=== PATIENT | male | born 1960 | race Caucasian/White ===

== ENCOUNTER 2018-04-12 16:47 | Emergency (ER) | payer MEDICARE, OTHER ==
--- NOTE | 2018-04-12 18:46 | UC ---
Complaint Male HPI - HPI Summary HPI Summary: Per expert witness "B/L flank pain today, with chills; urinary frequency last night; burning with urination started [id number]; slight nausea" -here w/ his . -Goes to at [facility] in [place]. -had US done 2-3 mo ago of kidneys. no known stones. has enlarged prostate and they considered bx. but reoprts nml PSA. -has been told he can take ibuprofen -has had pyelonephritis in past and used cipro. they waited a lot longer to be treated then though -sx started suddenly today. he did take a left over cipro at 1600 today prior to coming in. he and his both report that he has improved since then. - History of Current Complaint Chief Complaint: UCGU Stated Complaint: URINARY,CHILLS,ACHEY Time Seen by Provider: 04/12/18 18:37 Pain Intensity: 6 - Allergies/Home Medications Allergies/Adverse Reactions: Allergies Allergy/AdvReac Type Severity Reaction Status Date / Time Environmental Allergy Eyes Uncoded 04/12/18 17:13 Itchy/Swollen/Red/Watery Home Medications: Home Medications Aspirin [Aspir-Low] 81 mg PO QAM 04/12/18 [History Confirmed 04/12/18] Cetirizine* [ZyrTEC 10 MG TAB*] 10 mg PO DAILY 04/12/18 [History Confirmed 04/12] Ciprofloxacin TAB* [Cipro 250 MG Tab*] 1 dose PO ONCE PRN 04/12/18 [History Confirmed 04/12/18] Metoprolol Tartrate 50 mg PO BID 04/12/18 [History Confirmed 04/12/18] amLODIPine TAB* [Norvasc 5 mg TAB*] 5 mg PO DAILY 04/12/18 [History Confirmed ] raNITIdine HCl [Ranitidine HCl] 150 mg PO BID 04/12/18 [History Confirmed ] PMH/Surg Hx/FS Hx/Imm Hx Previously Healthy: Yes Endocrine History: Dyslipidemia Cardiovascular History: Hypertension - Surgical History Surgical History: Yes Surgery Procedure, Year, and Place: Surgery for colon ca, brain ca, and cardiac stents x 3; 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 Negative: Hematuria Motor: Positive: Negative Neurovascular: Positive: Negative Musculoskeletal: Positive: Arthralgia, Myalgia Neurological: Positive: Negative Psychological: Positive: Negative Is Patient Immunocompromised?: No Physical Exam Triage Information Reviewed: Yes Appearance: Ill-Appearing - mildly so. sleeping sitting up in chair when I walked into exam room. is very good historian. Vital Signs: Initial Vital Signs Temp 100.6 F 04/12/18 17:23 Pulse 84 04/12/18 17:23 Resp 20 04/12/18 17:23 BP 137/75 04/12/18 17:23 Pulse Ox 98 04/12/18 17:23 Vital Signs Reviewed: Yes ENT: Positive: Normal ENT inspection, Pharynx normal Neck exam: Normal Neck: Positive: Supple, Nontender, No Lymphadenopathy Respiratory Exam: Normal Respiratory: Positive: Lungs clear, Normal breath sounds, No respiratory distress, No accessory muscle use Cardiovascular Exam: Normal Abdominal Exam: Normal Abdomen Description: Positive: Nontender, Soft, CVA Tenderness (R), CVA Tenderness (L) Bowel Sounds: Positive: Present Musculoskeletal Exam: Normal Neurological Exam: Normal Psychological Exam: Normal Skin Exam: Normal Complaint Male Course/Dx - Course Course Of Treatment: suspect pyelonephritis, possibly B/L Rt > Lt. possible prostatitis. cannot r/o kidney stone. -CBC to track infection. -declines CT. -will go to [facility] at [place] tomorrow if sx not improved. -follows w/ at [facility]. had appt next week that got cx'd by clinic. -[facility] in the week. go to ER if sx increase or not improved. -he does feel slightly better since taking a cipro 500mgs dose at 1600. -Bp is slightly elevated although he does have HTN and is in pain. will FU with PCP - Differential Dx/Diagnosis Differential Diagnosis/HQI/PQRI: Prostatitis, Pyelonephritis, Ureteral Calculi, Urinary Tract Infection Provider Diagnosis: Pyelonephritis Discharge - Sign-Out/Discharge Documenting (check all that apply): Patient Departure All imaging exams completed and their final reports reviewed: No Studies - Discharge Plan Condition: Stable Disposition: HOME Prescriptions: Ciprofloxacin HCl [Cipro 500 MG TAB] 500 mg PO BID #14 tab Patient Education Materials: Kidney Infection (ED) Referrals: Jeff Reyes MD [Primary Care Provider] - Additional Instructions: Make sure to go to ER with any worsening symptoms or no improvement in your symptoms. Call here in 2 days for your blood count results if you have not received them. You should be seen in follow up in 3-4 days -You have been given 1 gram of rocephin while you were here. - Billing Disposition and Condition Condition: STABLE Disposition: Home
[2018-04-12] MEDS ORDERED: cefTRIAXone VIAL(*) 1,000 MG VIAL IM ONE (18:59)
[2018-04-12] MEDS ORDERED: Lidocaine 1% MPF* 2 ML VIAL ONE (19:06)
[2018-04-12] MEDS ORDERED: Lidocaine 1% MPF* 2 ML VIAL INJ ONE (19:08)
[2018-04-12 19:32] VITALS: BP 146/71
--- NOTE | 2018-04-15 06:57 | UC ---
- Progress Note Progress Note: I am unsure how to interpret culture results as pt had already taken cipro prior to culture Course/Dx - Diagnoses Provider Diagnoses: Pyelonephritis Discharge - Sign-Out/Discharge Documenting (check all that apply): Post-Discharge Follow Up All imaging exams completed and their final reports reviewed: No Studies - Discharge Plan Condition: Stable Disposition: HOME Prescriptions: Ciprofloxacin HCl [Cipro 500 MG TAB] 500 mg PO BID #14 tab Patient Education Materials: Kidney Infection (ED) Referrals: Jeff Reyes MD [Primary Care Provider] - Additional Instructions: Make sure to go to ER with any worsening symptoms or no improvement in your symptoms. Call here in 2 days for your blood count results if you have not received them. You should be seen in follow up in 3-4 days -You have been given 1 gram of rocephin while you were here. - Billing Disposition and Condition Condition: STABLE Disposition: Home
== END 2018-04-12 19:43 | disposition home or self-care (01) ==
LOC: UCCORT 16:47
DX: N12 Tubulo-interstitial nephritis, not specified as acute or chronic (principal); I10 Essential (primary) hypertension; Z91.09 Other allergy status, other than to drugs and biological substances; Z79.82 Long term (current) use of aspirin; Z79.899 Other long term (current) drug therapy
CPT/HCPCS: 81003; 87086; 96372; 99212; G0463; J0696